=== PATIENT | male | born 1990 | race African-American/Black ===

== ENCOUNTER 2017-02-12 13:16 | Emergency (ER) | payer BC ==
[~2017-02-12] VITALS: Ht 180.3 cm; Wt 99.8 kg
[2017-02-12 13:59] VITALS: BP 157/88
[2017-02-12] MEDS ORDERED: LIDOCAINE 1% PF 2 ML VIAL. INJ ONE (14:30)
[2017-02-12] MEDS ORDERED: AZITHROMYCIN 250 MG TABLET. PO ONE (14:30)
[2017-02-12] MEDS ORDERED: CIPROFLOXACIN HCL 250 MG TABLET. PO ONE (14:30)
[2017-02-12] MEDS ORDERED: ONDANSETRON ODT 4 MG TAB.RAPDIS. PO ONE (14:30)
[2017-02-12] MEDS ORDERED: metroNIDAZOLE 500 MG TABLET PO ONE (14:30)
[2017-02-12] MEDS ORDERED: cefTRIAXone IM 1 GM VIAL IM ONE (14:30)
[2017-02-12 14:49] LABS: BILIRUBIN,URINE NEGATIVE (NEG); GLUCOSE,URINE NEGATIVE (NEG); NITRITE,URINE NEGATIVE (NEG); PH,URINE 5.5; PROTEIN,URINE NEGATIVE (NEG-TRACE); UROBILINOGEN,URINE 0.2 mg/dL (0.2 mg/dL)
[2017-02-12] MEDS ORDERED: CIPR500T94 PO (14:56)
--- NOTE | 2017-02-12 14:56 | PHYS DOC ---
Past Medical History Past Medical History: No Pertinent History Past Surgical History: No Surgical History Alcohol Use: None Drug Use: None Adult General Chief Complaint Chief Complaint: SEXUALLY TRANSMITTED DISEASE HPI HPI Patient is a 26 year old male with no significant medical history who presents today complaining of penile discharge intermittently for 1 month. Patient states he was seen at outpatient clinic twice for this complaint and has been treated for STD twice including taking doxycycline, a short and pills. Patient states the symptoms improved for couple days then yesterday he started having penile discharge. Patient states he just came from [facility] recently. He states he used to have 3 sexual partners/women but he no longer has them. He states he currently has a new girlfriend and the use protection at all time. He states the girlfriend has no symptoms so she never got treated. Review of Systems Review of Systems Constitutional: Denies fever or chills [] GI: Denies abdominal pain, nausea, vomiting, bloody stools or diarrhea [] : Denies dysuria or penile discharge Musculoskeletal: Denies back pain or joint pain [] Integument: Denies rash or skin lesions [] Neurologic: Denies headache, focal weakness or sensory changes [] Current Medications Current Medications Current Medications Medications (Trade) Dose Ordered Sig/Christine Start Time Stop Time Status Last Admin Dose Admin Azithromycin (Zithromax) 1,000 mg 1X ONCE 02/12/17 14:30 02/12/17 14:31 DC 02/12/17 14:51 1,000 MG Ceftriaxone Sodium (Rocephin Im) 1 gm 1X ONCE 02/12/17 14:30 02/12/17 14:31 DC 02/12/17 14:52 1 GM Ciprofloxacin (Cipro) 500 mg 1X ONCE 02/12/17 14:30 02/12/17 14:31 DC 02/12/17 14:50 500 MG Lidocaine HCl (Xylocaine-Mpf 1% Vial) 2 ml 1X ONCE 02/12/17 14:30 02/12/17 14:31 DC 02/12/17 14:52 2 ML Metronidazole (Flagyl) 2,000 mg 1X ONCE 02/12/17 14:30 02/12/17 14:31 DC 02/12/17 14:51 2,000 MG Ondansetron HCl (Zofran Odt) 4 mg 1X ONCE 02/12/17 14:30 02/12/17 14:31 DC 02/12/17 14:51 4 MG Allergies Allergies Allergies Coded Allergies Type Severity Reaction Last Updated Verified No Known Drug Allergies 02/12/17 No Physical Exam Physical Exam Constitutional: Well developed, well nourished, no acute distress, non-toxic appearance. [] Abdomen: Male exam deferred. Bowel sounds normal, soft, no tenderness, no masses, no pulsatile masses. [] Skin: Warm, dry, no erythema, no rash. [] Back: No tenderness, no CVA tenderness. [] Extremities: No tenderness, no cyanosis, no clubbing, ROM intact, no edema. [] Neurologic: Alert and oriented X 3, normal motor function, normal sensory function, no focal deficits noted. [] Psychologic: Affect normal, judgement normal, mood normal. [] Current Patient Data Vital Signs Vital Signs Date Time Temp Pulse Resp B/P (MAP) Pulse Ox O2 Delivery O2 Flow Rate FiO2 02/12/17 13:59 97.4 71 16 100 Room Air 97.4 Lab Values Laboratory Tests Test 02/12/17 14:04 Urine Collection Type Void Urine Color Yellow Urine Clarity Clear Urine pH 5.5 Urine Specific [place] 1.025 Urine Protein Negative mg/dL (NEG-TRACE) Urine Glucose (UA) Negative mg/dL (NEG) Urine Ketones (Stick) Negative mg/dL (NEG) Urine Blood Negative (NEG) Urine Nitrite Negative (NEG) Urine Bilirubin Negative (NEG) Urine Urobilinogen Dipstick 0.2 mg/dL (0.2 mg/dL) Urine Leukocyte Esterase Moderate (NEG) Urine RBC Rare /HPF (0-2) Urine WBC 20-40 /HPF (0-4) Urine Squamous Epithelial Cells Occ /LPF Urine Bacteria Few /HPF (0-FEW) Urine Mucus Marked /LPF EKG EKG [] Radiology/Procedures Radiology/Procedures [] Course & Med Decision Making Course & Med Decision Making Pertinent Labs and Imaging studies reviewed. (See chart for details) This is a 26-year-old male patient presenting to the ED today complaining of penile discharge intermittently for 1 month. He states he has been treated for STDs twice at [facility] including taking antibiotic shot, 4 pills, and doxycycline. He states the symptoms were gone then returned yesterday. Patient states his current partner was not treated but they use protection at all times. I talked to patient on the importance of getting the partner treated. His urine was sent to lab. He was given 1 g of Rocephin IM, azithromycin, Flagyl, and started on Cipro. I recommended he follows up with the health department as well as urologist at [facility]. Edd Disclaimer Dragon Disclaimer This electronic medical record was generated, in whole or in part, using a voice recognition dictation system. Departure Departure Impression: Primary Impression: Urethritis Disposition: HOME, SELF-CARE Condition: STABLE Referrals: NO PCP (PCP) Follow-up with the health department as well as [facility] urologist this week [phone] Patient Instructions: Urethritis, Adult Additional Instructions: You were seen with symptoms suspicious of sexually transmitted diseases. We treated you prophylaxis in the emergency room. Please do not have sex for 2 weeks. Please consider following up with the urologist provided as well as the health department in the course of this week. Please use protection at all times. Please complete your antibiotics. Scripts Ciprofloxacin Hcl (CIPRO) 500 Mg Tablet 1 TAB PO BID, #28 TAB Prov: MARYSE NICHOLS APRN 02/12/17 MARYSE NICHOLS APRN Feb 12, 2017 14:56
[2017-02-12 14:58] LABS: BACTERIA,URINE FEW /HPF (0-FEW); RBC,URINE RARE /HPF (0-2); SQUAMOUS EPITHELIAL CELL,UR OCC /LPF; WBC,URINE 20-40 /HPF (0-4)
== END 2017-02-12 15:06 | disposition home or self-care (01) ==
LOC: ER 13:16
DX: N34.2 Other urethritis (principal)
CPT/HCPCS: 81001; 87086; 87491; 87591; 96372; 99284; J0696; Q0144; Q0162